=== PATIENT | male | born 1950 | race Caucasian/White ===

== ENCOUNTER 2020-03-19 13:21 | Emergency (ER) | payer MEDICARE, OTHER ==
[2020-03-19] MEDS ORDERED: Sodium Chloride 0.9% 10 ML Syringe FLUSH PRN ×2 (13:48→14:50)
--- NOTE | 2020-03-19 14:12 | CR ---
Pelvis: AP view of the pelvis was obtained. Complete left hip not included on the study. Joint spaces within both hips are preserved. There is widening of the pubic symphysis. No discrete fracture or other abnormality is appreciated. Impression: 1. Widening of the pubic symphysis. Uncertain if this is old or represents acute diastases. Consider CT study to further evaluate if patient has clinical symptoms of unstable pelvis. 2. No additional abnormality is seen. Diagnostic code #5 This report was dictated in MDT
[2020-03-19] MEDS ORDERED: Sodium Chloride 0.9% 1,000 ML IV SCH (14:45)
[2020-03-19] MEDS ORDERED: Iopamidol 612 MG/ML 100 ML Bottle IVPUSH ONE (14:50)
--- NOTE | 2020-03-19 14:52 | EDM.PDOC ---
ED HPI GENERAL MEDICAL PROBLEM - General Chief Complaint: Trauma Stated Complaint: PELVIC INJURY Time Seen by Provider: 03/19/20 14:25 Source of Information: Reports: Patient History Limitations: Reports: No Limitations - History of Present Illness INITIAL COMMENTS - FREE TEXT/NARRATIVE: A trauma alert was called for this patient at 13:45. The patient was briefly seen by Dr. Christina, who entered orders for blood work, a urinalysis, and an x- ray of the pelvis. I came on service at 14:00. Mr. Blue is a very pleasant 70-year-old gentleman who now presents to the ED with pain to his pubic symphysis area. He states that he was riding a horse around 11:30 this morning, when the horse bucked, causing him to come down very hard on the saddle. He immediately felt a pop, and felt pain in his pubic symphysis area. He believes the area is swollen. He required assistance to get off the horse. He has subsequently been able to urinate, and reports that there was no blood in the urine. The patient denies any injury other than to his pubic symphysis. No prior pelvic injury. Here in the ED, the patient's initial BP is found to be modestly elevated at 159/95, otherwise, he is hemodynamically stable, afebrile, saturating 98% on room air. The patient states that he took 4 tablets of Aleve around 08:30 this morning, but for his general arthritic pain, not for this injury. He did not take any medications following his injury. He states that he last ate around 09:00 this morning. Other than today's pelvic injury, the patient denies having a recent fever, chills, sore throat, ear pain, nasal or sinus congestion, cough, dyspnea, chest pain, palpitations, nausea, vomiting, constipation, diarrhea, abdominal pain, urinary symptoms, recent weight gain or weight loss, recent bloody bowel movements or black bowel movements, recent joint aches, headaches, or rashes. The patient and his are visiting from [place], [place]. 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 (see below) Other Treatments CLAY PLANT TREATER: ADVIL 800 MG Lower Pelvic Pain Score (Numeric/FACES): 10 - Related Data Allergies Allergy/AdvReac Type Severity Reaction Status Date / Time No Known Allergies Allergy Verified 03/19/20 13:57 Home Meds: Home Meds Aspirin [Halfprin] 81 mg PO DAILY 03/19/20 [History] Omeprazole 20 mg PO DAILY 03/19/20 [History] Rosuvastatin [Crestor] 20 mg PO DAILY 03/19/20 [History] lisinopriL [Lisinopril] 20 mg PO DAILY 03/19/20 [History] traMADol [Ultram] 1 tab PO Q6H #20 tablet 03/19/20 [Rx] Past Medical History Cardiovascular History: Reports: High Cholesterol, Hypertension Gastrointestinal History: Reports: GERD Musculoskeletal History: Reports: Osteoarthritis - Past Surgical History HEENT Surgical History: Reports: Cataract Surgery (right only) Social & Family History - Tobacco Use Smoking Status *Q: Former Smoker Years of Tobacco use: 23 Packs/Tins Daily: 1 Month/Year Tobacco Last Used: Quit 1989 - Caffeine Use Caffeine Use: Reports: Coffee - Alcohol Use Alcohol Use History: Yes Alcohol Use Frequency: Socially - Recreational Drug Use Recreational Drug Use: No - Living Situation & Occupation Living situation: Reports: , with Spouse Occupation: Retired Review of Systems - Review of Systems Review Of Systems: Comprehensive ROS is negative, except as noted in HPI. ED EXAM, GENERAL - Physical Exam Exam: See Below Exam Limited By: No Limitations General Appearance: Alert, WD/WN, No Apparent Distress Eye Exam: Bilateral Eye: EOMI, Normal Inspection Ears: Normal External Exam, Hearing Grossly Normal Nose: Normal Inspection Throat/Mouth: Normal Inspection, Normal Lips, Normal Voice, No Airway Compromise Head: Atraumatic, Normocephalic Neck: Normal Inspection, Full Range of Motion Respiratory/Chest: No Respiratory Distress, Lungs Clear, Normal Breath Sounds, No Accessory Muscle Use Cardiovascular: Normal Peripheral Pulses, Regular Rate, Rhythm, No Edema, No Gallop, No JVD, No Murmur, No Rub Peripheral Pulses: 3+: Radial (L), Radial (R) GI/Abdominal: Normal Bowel Sounds, Soft, No Organomegaly, No Distention, No Abnormal Bruit, No Mass, Tender (Suprapubically only. Nontender elsewhere.) (Male) Exam: No Hernia, Normal Inspection (No appreciable swelling. No visible ecchymosis.), Other (Exquisite tenderness to palpation over the pubic symphysis) Rectal (Males) Exam: Deferred Extremities: Normal Inspection, Normal Range of Motion, No Pedal Edema, Normal Capillary Refill Neurological: Alert, Oriented, Normal Cognition, No Motor/Sensory Deficits Psychiatric: Normal Affect Skin Exam: Warm, Dry, Intact, Normal Color, No Rash Course - Vital Signs Last Recorded V/S: Last Vital Signs Temp 36.9 C 03/19/20 13:47 Pulse 68 03/19/20 15:23 Resp 20 03/19/20 13:47 BP 170/90 H 03/19/20 15:23 Pulse Ox 100 03/19/20 15:23 - Orders/Labs/Meds Orders: Active Orders 24 hr Category Date Time Status Insert Santana Catheter [Insert Urinary Catheter] [OM.PC] Care 03/19/20 14:45 Ordered Q24H Peripheral IV Care [RC] . DIRECTED Care 03/19/20 13:49 Active Urinary Catheter Assessment [RC] ASDIRECTED Care 03/19/20 14:43 Active Pelvis w Cont [CT] Stat Exams 03/19/20 14:46 Taken Sodium Chloride 0.9% [Normal Saline] 1,000 ml Med 03/19/20 14:45 Active IV ASDIRECTED Sodium Chloride 0.9% [Saline Flush] Med 03/19/20 13:48 Active 10 ml FLUSH ASDIRECTED PRN Sodium Chloride 0.9% [Saline Flush] Med 03/19/20 14:50 Active 10 ml FLUSH ONETIME PRN Peripheral IV Insertion Adult [OM.PC] Stat Oth 03/19/20 13:48 Ordered Medication Orders Sodium Chloride (Normal Saline) 1,000 mls @ 100 mls/hr IV ASDIRECTED PATRICIA Last Admin: 03/19/20 15:47 Dose: 100 mls/hr Documented by: SAMANTHA Sodium Chloride (Saline Flush) 10 ml FLUSH ASDIRECTED PRN PRN Reason: Keep Vein Open Last Admin: 03/19/20 15:48 Dose: 10 ml Documented by: SAMANTHA Sodium Chloride (Saline Flush) 10 ml FLUSH ONETIME PRN PRN Reason: IV FLUSH Last Admin: 03/19/20 15:34 Dose: 10 ml Documented by: SHARMILA Labs: Laboratory Tests 03/19/20 03/19/20 03/19/20 Range/Units 13:50 13:50 15:00 WBC 11.50 H (4.23-9.07) K/mm3 RBC 4.99 (4.63-6.08) M/mm3 Hgb 15.3 (13.7-17.5) gm/dl Hct 43.9 (40.1-51.0) % MCV 88.0 (79.0-92.2) fl MCH 30.7 (25.7-32.2) pg MCHC 34.9 (32.2-35.5) g/dl RDW Std Deviation 43.0 (35.1-43.9) fL Plt Count 267 (163-337) K/mm3 MPV 10.4 (9.4-12.3) fl Neut % (Auto) 86.4 H (34.0-67.9) % Lymph % (Auto) 6.2 L (21.8-53.1) % Calloway % (Auto) 6.1 (5.3-12.2) % Eos % (Auto) 0.8 (0.8-7.0) Baso % (Auto) 0.3 (0.1-1.2) % Neut # (Auto) 9.95 H (1.78-5.38) K/mm3 Lymph # (Auto) 0.71 L (1.32-3.57) K/mm3 Calloway # (Auto) 0.70 (0.30-0.82) K/mm3 Eos # (Auto) 0.09 (0.04-0.54) K/mm3 Baso # (Auto) 0.03 (0.01-0.08) K/mm3 Manual Slide Review Abnormal smear Sodium 141 (136-145) mEq/L Potassium 4.1 (3.5-5.1) mEq/L Chloride 106 (98-107) mEq/L Carbon Dioxide 24 (21-32) mEq/L Anion Gap 15.1 H (5-15) BUN 18 (7-18) mg/dL Creatinine 1.1 (0.7-1.3) mg/dL Est Cr Clr Drug Dosing 69.57 mL/min Estimated GFR (MDRD) > 60 (>60) mL/min BUN/Creatinine Ratio 16.4 (14-18) Glucose 102 (80-115) mg/dL Calcium 8.1 L (8.5-10.1) mg/dL Total Bilirubin 0.5 (0.2-1.0) mg/dL AST 25 (15-37) U/L ALT 38 (16-63) U/L Alkaline Phosphatase 56 (46-116) U/L Total Protein 7.1 (6.4-8.2) g/dl Albumin 4.0 (3.4-5.0) g/dl Globulin 3.1 gm/dL Albumin/Globulin Ratio 1.3 (1-2) Urine Color (Yellow) Urine Appearance (Clear) Urine pH (5.0-8.0) Ur Specific [place] (1.005-1.030) Urine Protein (Negative) Urine Glucose (UA) (Negative) Urine Ketones (Negative) Urine Occult Blood (Negative) Urine Nitrite (Negative) Urine Bilirubin (Negative) Urine Urobilinogen (0.2-1.0) Ur Leukocyte Esterase (Negative) Urine RBC (0-5) /hpf Urine WBC (0-5) /hpf Ur Squamous Epith Cells (0-5) /hpf Urine Bacteria (FEW) /hpf Urine Mucus (FEW) /hpf SARS CoV-2 RNA Rapid HARLAN Negative (NEGATIVE) 03/19/20 Range/Units 15:14 WBC (4.23-9.07) K/mm3 RBC (4.63-6.08) M/mm3 Hgb (13.7-17.5) gm/dl Hct (40.1-51.0) % MCV (79.0-92.2) fl MCH (25.7-32.2) pg MCHC (32.2-35.5) g/dl RDW Std Deviation (35.1-43.9) fL Plt Count (163-337) K/mm3 MPV (9.4-12.3) fl Neut % (Auto) (34.0-67.9) % Lymph % (Auto) (21.8-53.1) % Calloway % (Auto) (5.3-12.2) % Eos % (Auto) (0.8-7.0) Baso % (Auto) (0.1-1.2) % Neut # (Auto) (1.78-5.38) K/mm3 Lymph # (Auto) (1.32-3.57) K/mm3 Calloway # (Auto) (0.30-0.82) K/mm3 Eos # (Auto) (0.04-0.54) K/mm3 Baso # (Auto) (0.01-0.08) K/mm3 Manual Slide Review Sodium (136-145) mEq/L Potassium (3.5-5.1) mEq/L Chloride (98-107) mEq/L Carbon Dioxide (21-32) mEq/L Anion Gap (5-15) BUN (7-18) mg/dL Creatinine (0.7-1.3) mg/dL Est Cr Clr Drug Dosing mL/min Estimated GFR (MDRD) (>60) mL/min BUN/Creatinine Ratio (14-18) Glucose (80-115) mg/dL Calcium (8.5-10.1) mg/dL Total Bilirubin (0.2-1.0) mg/dL AST (15-37) U/L ALT (16-63) U/L Alkaline Phosphatase (46-116) U/L Total Protein (6.4-8.2) g/dl Albumin (3.4-5.0) g/dl Globulin gm/dL Albumin/Globulin Ratio (1-2) Urine Color Yellow (Yellow) Urine Appearance Clear (Clear) Urine pH 7.0 (5.0-8.0) Ur Specific [place] 1.025 (1.005-1.030) Urine Protein Negative (Negative) Urine Glucose (UA) Negative (Negative) Urine Ketones Negative (Negative) Urine Occult Blood 2+ H (Negative) Urine Nitrite Negative (Negative) Urine Bilirubin Negative (Negative) Urine Urobilinogen 1.0 (0.2-1.0) Ur Leukocyte Esterase Negative (Negative) Urine RBC 20-30 H (0-5) /hpf Urine WBC 0-5 (0-5) /hpf Ur Squamous Epith Cells 0-5 (0-5) /hpf Urine Bacteria Few (FEW) /hpf Urine Mucus Few (FEW) /hpf SARS CoV-2 RNA Rapid HARLAN (NEGATIVE) Meds: Medications Generic Name Dose Route Start Last Admin Trade Name Freq PRN Reason Stop Dose Admin Sodium Chloride 1,000 mls @ 100 mls/hr 03/19/20 14:45 03/19/20 15:47 Normal Saline IV 100 mls/hr ASDIRECTED PATRICIA Administration Sodium Chloride 10 ml 03/19/20 13:48 03/19/20 15:48 Saline Flush FLUSH 10 ml ASDIRECTED PRN Administration Keep Vein Open Sodium Chloride 10 ml 03/19/20 14:50 03/19/20 15:34 Saline Flush FLUSH 10 ml ONETIME PRN Administration IV FLUSH Discontinued Medications Generic Name Dose Route Start Last Admin Trade Name Rosa PRN Reason Stop Dose Admin Iopamidol 100 ml 03/19/20 14:50 03/19/20 15:34 Isovue-300 (61%) IVPUSH 03/19/20 14:51 100 ml ONETIME ONE Administration - Re-Assessments/Exams Free Text/Narrative Re-Assessment/Exam: 03/19/20 14:47 As above, the patient was riding a horse that bucked, causing him to come down hard on his sandal around 11:30 this morning. He immediately had pain and swelling to his pubic symphysis area, and on examination, while there is no visible ecchymosis, and I do not see much in the way of swelling to the area, he is very tender over his pubic symphysis. The pelvic x-ray is read by Dr. Myers as: 1. Widening of the pubic symphysis. Uncertain if this is old or represents acute diastasis. Consider CT study to further evaluate if patient has clinical symptoms of unstable pelvis. 2. No acute abnormality is seen. The patient's CBC is remarkable for WBC count slightly elevated at 11.50, with the remainder of his CBC being unremarkable. His CMP is remarkable for an anion gap slightly elevated at 15.1, but with a bicarbonate normal at 24, and the remainder of his CMP being unremarkable. After discussing the case with Dr. Myers, I have ordered a CT of the pelvis with IV contrast. The CT scan will not only evaluate the pelvis, but evaluate the pelvic organs, as well. In addition, since there is no blood at the meatus, I asked Celestina NAVA to place a Santana catheter, from which we will obtain a urine sample. The patient will be swabbed for the SARS-CoV-2 virus. I have ordered NS to be given at 100 ml/hr, however, the patient is declining an offer for pain medication at this time, stating that he is perfectly comfortable if he lays still. I advised him to notify his nurse if he changes his mind, and notified Celestina NAVA of the same. 09/17/20 16:27 The patient's urinalysis is remarkable for 2+ occult blood with 20-30 RBCs, leukocyte esterase negative with 0-5 WBCs, nitrate negative with few bacteria, and 0-5 squamous epithelial cells. The patient is a swab for the SARS-CoV-2 virus is negative. 03/19/20 18:18 CT of the pelvis with contrast is read by Dr. Myers as: 1. Slightly widened pubic symphysis but no additional abnormality is appreciated within the pelvis. This widened pubic symphysis may be normal variant. 2. Soft tissue swelling within the subcutaneous fat anterior to the pubic symphysis. 3. No acute abnormality is appreciated. 4. Degenerative disc space narrowing within the L5-S1 disc. 03/19/20 18:[address] Rivas today at 18:00. He feels that the patient has a type I pubic symphysis injury. Treatment consists of pain control and weightbearing as tolerated with a walker. He will need to follow-up in 2 weeks for repeat pelvic x-ray. He does not need to be admitted. 03/19/20 18:47 Test results and my conversation with Dr. Rivas discussed with the patient. I was going to prescribe him Franklin, but he would prefer something less strong, like tramadol. We will start him on tramadol now, and I will prescribe the same. He states that he will acquire his own walker. He will be discharged home with a CD-ROM of his x-ray and CT images. Departure - Departure Time of Disposition: 18:52 Disposition: Home, Self-Care 01 Condition: Good Clinical Impression: Symphysis pubis disruption - Discharge Information *PRESCRIPTION DRUG MONITORING PROGRAM REVIEWED*: Not Applicable *COPY OF PRESCRIPTION DRUG MONITORING REPORT IN PATIENT HARINDER: Not Applicable Prescriptions: traMADol [Ultram] 1 tab PO Q6H #20 tablet Referrals: PCP,Not In Area [Primary Care Provider] - Forms: ED Department Discharge Additional Instructions: You were seen in the emergency room after being bucked on a horse, coming down hard on the saddle. Work-up in the ER included blood work, a urinalysis, a swab for the SARS-CoV-2 virus, an x-ray of your pelvis, and a CT of your pelvis with IV contrast. Both the x-ray and the CT demonstrated that you have mild separation at your pubic symphysis, due to a type I injury. Surgery is not necessary. You have been added on the opioid pain reliever tramadol, and a prescription for tramadol has been provided to you. You may take 1 tablet every 4-6 hours as needed for pain. In addition to tramadol, you may take [id number] Tylenol or ibuprofen. Treatment for a type I pubic symphysis injury involves weightbearing as tolerated, using a walker. You have been provided with a CD-ROM of the images of your x-ray and CT scan. We recommend that you follow-up with your PCP in 2 weeks for a repeat pelvic x- ray. Bring the CD-ROM with you. If any other problems, please do not hesitate to return to the ER. Sepsis Event Note (ED) - Evaluation Sepsis Screening Result: No Definite Risk - Focused Exam Vital Signs: Vital Signs Temp Pulse Resp BP Pulse Ox 03/19/20 15:23 68 170/90 H 100 03/19/20 13:47 36.9 C 72 20 159/95 H 98 - My Orders Last 24 Hours: My Active Orders 03/19/20 14:43 Urinary Catheter Assessment [RC] ASDIRECTED 03/19/20 14:45 Insert Santana Catheter [Insert Urinary Catheter] [OM.PC] Q24H Sodium Chloride 0.9% [Normal Saline] 1,000 ml IV ASDIRECTED 03/19/20 14:46 Pelvis w Cont [CT] Stat 03/19/20 14:50 Sodium Chloride 0.9% [Saline Flush] 10 ml FLUSH ONETIME PRN - Assessment/Plan Last 24 Hours: My Active Orders 03/19/20 14:43 Urinary Catheter Assessment [RC] ASDIRECTED 03/19/20 14:45 Insert Santana Catheter [Insert Urinary Catheter] [OM.PC] Q24H Sodium Chloride 0.9% [Normal Saline] 1,000 ml IV ASDIRECTED 03/19/20 14:46 Pelvis w Cont [CT] Stat 03/19/20 14:50 Sodium Chloride 0.9% [Saline Flush] 10 ml FLUSH ONETIME PRN
[2020-03-19] MEDS ORDERED: traMADol 50 MG Tab PO ONE (18:50)
--- NOTE | 2020-03-20 08:35 | CT ---
CT pelvis Technique: Multiple axial sections through the pelvis were obtained. Reconstructed coronal and sagittal images were obtained. Findings: Pubic symphysis is slightly widened. Sacroiliac joints appear normal. No pelvic fracture is noted. Soft tissue swelling is noted anterior to the pubic symphysis. Santana catheter seen within the bladder with a small amount of air from recent instrumentation. Contrast within the bladder which shows no extravasation. Contrast is noted within nondilated ureters. Severe disc space narrowing within the L5-S1 disc with vacuum phenomena is seen. Impression: 1. Slightly widened pubic symphysis but no additional abnormality is appreciated within the pelvis. This widened pubic symphysis may be normal variant. 2. Soft tissue swelling within the subcutaneous fat anterior to the pubic symphysis. 3. No acute abnormality is appreciated. 4. Degenerative disc space narrowing within the L5-S1 disc. Diagnostic code #3 This report was dictated in MDT MTDD
== END 2020-03-19 20:00 | disposition home or self-care (01) ==
LOC: JD.ED 13:21
DX: S32.810A Multiple fractures of pelvis with stable disruption of pelvic ring, initial encounter for closed fracture (principal); I10 Essential (primary) hypertension; K21.9 Gastro-esophageal reflux disease without esophagitis; M19.90 Unspecified osteoarthritis, unspecified site; E78.00 Pure hypercholesterolemia, unspecified; Z87.891 Personal history of nicotine dependence; Z79.899 Other long term (current) drug therapy; Z79.82 Long term (current) use of aspirin; Z20.828 Contact with and (suspected) exposure to other viral communicable diseases; V80.010A Animal-rider injured by fall from or being thrown from horse in noncollision accident, initial encounter; Y93.52 Activity, horseback riding
CPT/HCPCS: 36415; 72170; 72193; 80053; 81001; 85025; 96360; 96361; 99284; A9270; J7030; Q9967; U0002; 51702; 99283